=== PATIENT | female | born 1965 | race Caucasian/White ===

== ENCOUNTER 2019-10-08 12:12 | Emergency (ER) | payer OTHER, SELFPAY ==
--- NOTE | 2019-10-08 12:37 | ED.URI ---
HPI - URI/Sore Throat General Chief Complaint: Upper Respiratory Infection Stated Complaint: Cold/Flu Time Seen by Provider: 10/08/19 13:18 Source: patient and RN notes reviewed Mode of arrival: ambulatory Limitations: no limitations History of Present Illness HPI Narrative: 54-year-old female presents with concern for headache, sore throat, cough, body aches that started at midnight. Reports her children are sick with similar symptoms. Reports taking NyQuil when she woke up. MD elicited complaint: sore throat Related Data Home Medications Medication Instructions Recorded Confirmed No Home Medications 10/08/19 10/08/19 Allergies Allergy/AdvReac Type Severity Reaction Status Date / Time Penicillins Allergy Intermediate HIVES Verified 10/08/19 12:54 Review of Systems Review of Systems: Narrative: CONSTITUTIONAL: Reports malaise, chills, sweats, fatigue. Denies fever. EYES: Denies visual changes, redness, or discharge. ENT: Denies rhinorrhea, congestion, sinus pain, otalgia. Reports sore throat. CARDIOVASCULAR: Denies chest pain, palpitations, or edema. RESPIRATORY: Reports cough. Denies dyspnea. GASTROINTESTINAL: Denies abdominal pain, nausea, vomiting, diarrhea SKIN: Denies rash or itching. MUSCULOSKELETAL: Reports myalgia. NEUROLOGIC: Reports headache. All systems reviewed & are unremarkable except as noted in HPI and below PMFSH Comments At time of signature, agree with nursing past medical, surgical, social and family history. There is no relevant family history pertinent to the presenting complaint Exam Narrative: Exam Narrative: GENERAL: Well-appearing, well-nourished, and in no acute distress. HEAD: Normocephalic EYES: PERRLA, conjunctivae clear, and EOMI. ENT: Nares clear, turbinates erythematous, clear discharge. Mucous membranes moist. TM pearly rubio with dull light reflex bilaterally; no tragal tenderness. Oropharynx erythematous without lesions. Tonsils enlarged and without exudate, no drooling, no hoarseness, no trismus. NECK: Supple. No lymphadenopathy CHEST: Clear to auscultation, breath sounds equal. No wheezing, rhonchi, rales, or stridor. No respiratory distress, speaks in full sentences. HEART: Regular rate and rhythm. No murmur heard. Normal peripheral pulses. SKIN: Warm, dry, no rash. NEURO: Alert and oriented x3. No focal deficits PSYCH: Normal mood and affect Course Course Emergency Course: Patient is aware of diagnosis, understands and agrees to treatment plan. Anticipatory guidance given. Patient agrees to follow-up as directed and is aware of reasons to seek care at the emergency department. Portions of this record may have been created with voice recognition software Vital Signs Vital signs: Reviewed. MDM - URI/Sore Throat MDM Narrative Medical decision making narrative: Differential diagnosis considered: Strep pharyngitis, allergic rhinitis, upper respiratory tract infection, sinusitis, rhinosinusitis, nasopharyngitis. viral pharyngitis, otitis media, otitis externa, pneumonia, bronchitis, viral cough syndrome, viral syndrome, and influenza. Exam findings show no acute concerns or changes; patient is non-toxic appearing and is in no distress. Patient is appropriate for outpatient treatment and follow-up. Lab Data Attestation: I reviewed the patient's lab results. Critical Care Time Critical Care Time Critical Care Time: No Discharge Plan Discharge Clinical Impression: Viral infection Patient Disposition: Home, Self-Care Condition: Stable Instructions: Viral Syndrome (ED) Additional Instructions: Your rapid strep swab was negative today at [facility]. A throat culture will be sent to the laboratory for further testing. If the test is positive, you will receive a phone call within 48 hours and an appropriate antibiotic will be initiated at that time. Your symptoms are likely due to a viral illness, which is not treated with antibiotics. Viral symptoms can be presen
[2019-10-08 13:03] VITALS: BP 106/69; PULSE 100; RESP 16; TEMP 37.4; O2SAT 98
== END 2019-10-08 13:50 | disposition home or self-care (01) ==
PROVIDERS: Emergency Provider Nurse Practitioner
DX: B34.9 Viral infection, unspecified (principal); Z85.048 Personal history of other malignant neoplasm of rectum, rectosigmoid junction, and anus; Z85.44 Personal history of malignant neoplasm of other female genital organs
CPT/HCPCS: 87081; 87804; 87880; 99213; G0463